=== PATIENT | male | born 2000 | race Caucasian/White ===

== ENCOUNTER 2019-01-17 09:47 | Emergency (ER) | payer OTHER ==
[~2019-01-17] VITALS: Ht 180.3 cm; Wt 112.0 kg
[2019-01-17 09:48] VITALS: BP 121/44
--- NOTE | 2019-01-17 09:56 | NUR ---
AT BEDSIDE FOR EVAL.
--- NOTE | 2019-01-17 10:02 | NUR ---
WASHER BLANKET AT BEDSIDE FOR XRAY.
--- NOTE | 2019-01-17 11:21 | NUR ---
SPLINTING DONE BY CONTROL MANAGER.
--- NOTE | 2019-01-17 11:27 | NUR ---
Patient discharged to home in stable condition. Written and verbal after care instructions given. Patient verbalizes understanding of instruction.
== END 2019-01-17 11:30 | disposition home or self-care (01) ==
LOC: ER 09:48
DX: S62.393A Other fracture of third metacarpal bone, left hand, initial encounter for closed fracture (principal); S62.395A Other fracture of fourth metacarpal bone, left hand, initial encounter for closed fracture; S62.397A Other fracture of fifth metacarpal bone, left hand, initial encounter for closed fracture; F17.200 Nicotine dependence, unspecified, uncomplicated; Z90.89 Acquired absence of other organs; W01.0XXA Fall on same level from slipping, tripping and stumbling without subsequent striking against object, initial encounter; Y93.89 Activity, other specified; Y92.89 Other specified places as the place of occurrence of the external cause; Y99.8 Other external cause status
CPT/HCPCS: 73130-TC

== ENCOUNTER 2019-03-12 14:42 | Emergency (ER) | payer OTHER ==
[~2019-03-12] VITALS: Ht 180.3 cm; Wt 112.9 kg
[2019-03-12 15:19] LABS: BASOPHILS # (AUTO) 0.1 /CMM (0.0-0.2); BASOPHILS % (AUTO) 0.7 % (0.0-2.0); EOSINOPHILS % (AUTO) 1.9 % (0.0-6.0); HEMATOCRIT 47 % (39-51); HEMOGLOBIN 16.2 g/dL (13.5-17.5); LYMPHOCYTES # (AUTO) 2.3 /CMM (0.8-4.8); LYMPHOCYTES % (AUTO) 31.4 % (20.0-44.0); MEAN CORPUSCULAR HGB CONC 34 g/dl (31.0-36.0); MEAN CORPUSCULAR VOLUME 83 fL (80-96); MONOCYTES # (AUTO) 0.4 /CMM (0.1-1.30); MONOCYTES % (AUTO) 5.5 % (2.0-12.0); NEUTROPHILS # (AUTO) 4.5 /CMM (1.8-8.9); NEUTROPHILS % (AUTO) 60.5 % (43.0-81.0); PLATELET COUNT (AUTO) 198 /CMM (150-450); RED BLOOD CELL COUNT(AUTO) 5.71 MIL/uL (4.5-6.0); WHITE BLOOD COUNT (AUTO) 7.5 K/uL (4.3-11.0)
[2019-03-12] MEDS ORDERED: PANTOPRAZOLE 40 MG VIAL ONE (15:22)
[2019-03-12] MEDS ORDERED: KETOROLAC TROMETHAMINE INJ 30 MG/ML VIAL ONE (15:22)
[2019-03-12] MEDS ORDERED: PANTOPRAZOLE 40 MG VIAL IV ONE (15:30)
[2019-03-12] MEDS ORDERED: KETOROLAC TROMETHAMINE INJ 30 MG/ML VIAL IV ONE (15:30)
--- NOTE | 2019-03-12 15:31 | NUR ---
PATIENT EDUAR, FROM HOME, C/O CHEST SHARP PAIN SINCE 8AM THIS MORNING AND SOB. ON ROOM AIR, BREATHING EVENLY AND UNLABROED. CONNECTED TO THE MONITOR AND PULSE OX. KEPT COMFORTABLE, WILL CONTINUE TO MONITOR ACCORDINGLY.
[2019-03-12 15:46] LABS: ALANINE AMINOTRANSFERASE 41 U/L (12-78); ALBUMIN 4.3 g/dL (3.4-5.0); ALKALINE PHOSPHATASE 100 U/L (46-116); ASPARTATE AMINOTRANSFERASE 18 U/L (15-37); BILIRUBIN,DIRECT 0.2 mg/dL (0.0-0.2); BILIRUBIN,TOTAL 0.8 mg/dL (0.2-1.0); TOTAL PROTEIN, SERUM 7.3 g/dL (6.4-8.2)
[2019-03-12] MEDS ORDERED: LIDOCAINE VISCOUS 2% UD 15 ML UDC MM ONE (16:00)
[2019-03-12] MEDS ORDERED: MAG HYDROX/AL HYDROX/SIMETH 30 ML UDC PO ONE (16:00)
[2019-03-12] MEDS ORDERED: LIDOCAINE VISCOUS 2% UD 15 ML UDC ONE (16:08)
--- NOTE | 2019-03-12 16:38 | NUR ---
PT REFUSED MAALOX AND LIDOCAINE
[2019-03-12 17:07] LABS: CALCIUM, SERUM 9.4 mg/dL (8.5-10.1); POTASSIUM 4.2 mmol/L (3.5-5.1)
[2019-03-12 17:54] VITALS: BP 125/71
--- NOTE | 2019-03-12 17:54 | NUR ---
Patient discharged to home in stable condition. Written and verbal after care instructions given. Patient verbalizes understanding of instruction.IV removed. Catheter intact and site benign. Pressure and 4x4 applied to site. No bleeding noted.
== END 2019-03-12 17:54 | disposition home or self-care (01) ==
LOC: ER 14:47
DX: R07.89 Other chest pain (principal); F17.210 Nicotine dependence, cigarettes, uncomplicated; Z98.890 Other specified postprocedural states; Z90.89 Acquired absence of other organs
CPT/HCPCS: 36415; 71045; 76705; 80048; 80076; 83690; 84484; 85025; 85378; 93005 ×3; 96374; 96375; 99284; 99406; C9113; J1885

== ENCOUNTER 2019-12-23 18:36 | Emergency (ER) | payer OTHER ==
[~2019-12-23] VITALS: Ht 177.8 cm; Wt 90.7 kg
--- NOTE | 2019-12-23 18:58 | NUR ---
patient came in to the er c/o left sided body pain. On room air, breathing evenly and unlabored. connected to the monitor and pulse ox. kept comfortable, will continue to monitor accordingly.
[2019-12-23] MEDS ORDERED: NAPROXEN 500 MG TABLET PO SCH (19:00)
[2019-12-23] MEDS ORDERED: NAPROXEN 250 MG TABLET ONE (19:09)
[2019-12-23 19:12] VITALS: BP 115/81
--- NOTE | 2019-12-23 19:13 | NUR ---
Patient discharged to home in stable condition. Written and verbal after care instructions given. Patient verbalizes understanding of instruction.
== END 2019-12-23 19:13 | disposition home or self-care (01) ==
LOC: ER 18:39
DX: S39.012A Strain of muscle, fascia and tendon of lower back, initial encounter (principal); Z98.890 Other specified postprocedural states; Z90.89 Acquired absence of other organs; V49.49XA Driver injured in collision with other motor vehicles in traffic accident, initial encounter; Y93.89 Activity, other specified; Y92.488 Other paved roadways as the place of occurrence of the external cause; Y99.8 Other external cause status

== ENCOUNTER 2022-01-26 01:06 | Emergency (ER) | payer OTHER ==
[~2022-01-26] VITALS: Ht 180.3 cm; Wt 79.4 kg
[2022-01-26 01:16] VITALS: BP 120/77
[2022-01-26] MEDS ORDERED: CEPH500T PO (01:17)
[2022-01-26] MEDS ORDERED: CEPHALEXIN MONOHYDRATE 500 MG CAPSULE PO ONE ×2 (01:23→01:30)
--- NOTE | 2022-01-26 01:40 | NUR ---
Patient discharged to home in stable condition. Written and verbal after care instructions given. Patient verbalizes understanding of instruction. Pt ambulatory with a steady gait
== END 2022-01-26 01:41 | disposition home or self-care (01) ==
LOC: ER 01:16
DX: L03.113 Cellulitis of right upper limb (principal); F17.210 Nicotine dependence, cigarettes, uncomplicated; Z90.89 Acquired absence of other organs

== ENCOUNTER 2024-02-16 21:36 | Emergency (ER) | payer BC, OTHER ==
[~2024-02-16] VITALS: Ht 175.3 cm; Wt 93.0 kg
[~2024-02-16 21:36] MED LIST: CEPH500T PO
[2024-02-16] MEDS ORDERED: KETOROLAC TROMETHAMINE INJ 30 MG/ML VIAL ONE (23:31)
[2024-02-16] MEDS ORDERED: ONDANSETRON 4 MG TAB.RAPDIS ONE (23:31)
[2024-02-16] MEDS: KETOROLAC TROMETHAMINE INJ 60 MG/2 ML VIAL IM ONE (23:43)
[2024-02-16] MEDS: ONDANSETRON 4 MG TAB.RAPDIS PO ONE (23:43)
[2024-02-17] MEDS ORDERED: KETO10TA2 PO (01:22)
[2024-02-17 01:30] VITALS: BP 128/84; TEMP 98.9; O2SAT 98
== END 2024-02-17 01:30 | disposition home or self-care (01) ==
LOC: ER 21:37
DX: S13.8XXA Sprain of joints and ligaments of other parts of neck, initial encounter (principal); F17.200 Nicotine dependence, unspecified, uncomplicated; Z98.890 Other specified postprocedural states; Z79.899 Other long term (current) drug therapy; V89.0XXA Person injured in unspecified motor-vehicle accident, nontraffic, initial encounter; Y93.89 Activity, other specified; Y92.89 Other specified places as the place of occurrence of the external cause; Y99.8 Other external cause status
CPT/HCPCS: 99285; 72125; 96372; 70450; J1885; Q0162